=== PATIENT | female | born 1945 | race Caucasian/White ===

== ENCOUNTER → 2017-12-23 | Outpatient (CLI) | payer OTHER ==
[~2017-12-23] MED LIST: ANACIN 400-321 EACH PO; FOSINOPRIL 10 M10 M1 PO; IBUPROFEN 200200 M1 PO; MEDROLDOSEPACK PO; PREDNISONE 20 M20 MG PO; PRINIVIL10 MG PO; SYNTHROID75 MCG PO; TRAMADOL 50 MG50 MG PO
== END ==
LOC: M.ULTRA 14:33
DX: N63.0 Unspecified lump in unspecified breast (principal); Z88.2 Allergy status to sulfonamides

== ENCOUNTER → 2018-02-25 | Outpatient (CLI) | payer OTHER | LOC: M.RAD 09:36 | DX: M54.41 Lumbago with sciatica, right side (principal); M54.42 Lumbago with sciatica, left side; M47.26 Other spondylosis with radiculopathy, lumbar region; G89.29 Other chronic pain; Z88.2 Allergy status to sulfonamides ==

== ENCOUNTER → 2018-03-05 | Outpatient (CLI) | payer OTHER ==
[2018-03-05 14:11] LABS: CREATININE 0.8 mg/dL (0.6-1.3)
== END ==
LOC: M.RAD 13:23
PROVIDERS: Registered Nurse Diabetes Educator
DX: M48.50XA Collapsed vertebra, not elsewhere classified, site unspecified, initial encounter for fracture (principal); Z78.0 Asymptomatic menopausal state

== ENCOUNTER → 2018-03-14 | Outpatient (CLI) | payer OTHER | LOC: M.MRI 10:36 | DX: M47.816 Spondylosis without myelopathy or radiculopathy, lumbar region (principal); M48.50XA Collapsed vertebra, not elsewhere classified, site unspecified, initial encounter for fracture ==

== ENCOUNTER → 2018-10-28 | Outpatient (CLI) | payer OTHER | LOC: M.MRI 10:48 | DX: H90.3 Sensorineural hearing loss, bilateral (principal) ==

== ENCOUNTER → 2019-04-13 | Outpatient (CLI) | payer OTHER | LOC: M.RAD 10:32 | DX: R05 Cough (principal) ==

== ENCOUNTER → 2019-08-06 | Outpatient (CLI) | payer OTHER | LOC: M.RAD 08-04 16:24 | DX: N60.02 Solitary cyst of left breast (principal) ==

== ENCOUNTER 2019-10-08 15:46 | Emergency (ER) | payer OTHER ==
[~2019-10-08] VITALS: Ht 170.2 cm; Wt 83.9 kg
[2019-10-08 17:04] VITALS: BP 180/91
== END 2019-10-08 17:06 | disposition home or self-care (01) ==
LOC: M.ERS 15:46
DX: S01.83XA Puncture wound without foreign body of other part of head, initial encounter (principal); W18.39XA Other fall on same level, initial encounter; Y92.89 Other specified places as the place of occurrence of the external cause; Y93.89 Activity, other specified; Y99.8 Other external cause status

== ENCOUNTER → 2020-08-10 | Outpatient (CLI) | payer OTHER | LOC: M.RAD 08:32 | PROVIDERS: ATTEND Internal Medicine | DX: Z12.31 Encounter for screening mammogram for malignant neoplasm of breast (principal) ==

== ENCOUNTER → 2021-07-27 | Outpatient (CLI) | payer OTHER | LOC: M.RAD 10:10 | PROVIDERS: ATTEND Internal Medicine | DX: Z12.31 Encounter for screening mammogram for malignant neoplasm of breast (principal) ==